=== PATIENT | male | born 1995 | race African-American/Black ===

== ENCOUNTER 2021-10-14 06:58 | Emergency (ER) | payer SELFPAY ==
[~2021-10-14] VITALS: Ht 177.8 cm; Wt 68.0 kg
--- NOTE | 2021-10-14 07:07 | NUR ---
TO ER BED 19. [facility], NO OTHER MEDICAL COMPLAINT. PT AAOX4. AMBULATORY WITH STEADY GAIT. BREATHING IS EVEN AND NON LABORED. CONNECTED TO MONITOR. VSS. AWAITING MD TREVINO
[2021-10-14 07:22] VITALS: BP 125/88
--- NOTE | 2021-10-14 07:22 | NUR ---
Patient discharged to home in stable condition. Written and verbal after care instructions given. Patient verbalizes understanding of instruction.
== END 2021-10-14 07:23 ==
LOC: ER 07:07
DX: Z02.89 Encounter for other administrative examinations (principal)